=== PATIENT | male | born 1980 | race Caucasian/White ===

== ENCOUNTER 2020-03-30 20:18 | Emergency (ER) | payer MEDICAID, SELFPAY ==
[2020-03-30 20:23] VITALS: BP 138/62; PULSE 109; RESP 14; TEMP 37.1; O2SAT 99; BMI 31.1
[2020-03-30 21:05] VITALS: BP 165/91; PULSE 112; RESP 25; O2SAT 100
--- NOTE | 2020-03-30 21:08 | W.ED.MALEGU ---
HPI - Male Genitourinary General: Chief complaint: Urogenital-Male Stated complaint: URINARY PROBLEMS Time Seen by Provider: 03/30/20 21:03 History of Present Illness: HPI Narrative: Patient is a 40-year-old male that comes to the ED with scrotal pain and white discharge from meatus of penis. Patient says symptoms have been going on for approximately a week and a half. He states that it hurts whenever he urinates. He says that his started developing the scrotal pain last 24 hours. he started taking an antibiotic that his friend gave him when symptoms first started. Patient says he has been sexually active and having unprotected sex with a girl he has been dating for the past several months. She denies any STD history. Patient says he does not have any past STDs. He also says he has a small sore right near the meatus of his penis. He says his symptoms did improve but when he was out of the antibiotic symptoms came back. Patient rates pain an 8 out of 10. Patient has not taken anything for pain today and says he does not want anything for pain while here in the ED. Associated symptoms: Reports dysuria; Deny hematuria, nausea or vomiting Review of Systems Const: Denies: fever(s), chills or fatigue Eyes: Denies: change in vision or eye discomfort ENMT: Denies: throat pain, odynophagia, nasal discharge or nasal congestion Card: Denies: chest pain, palpitations, edema, swelling of feet/ankles, dyspnea on exertion or orthopnea Resp: Denies: dyspnea, productive cough or non-productive cough GI: Denies: abdominal pain, nausea, vomiting, diarrhea, constipation or hematochezia : Reports: dysuria, genital lesions, penile discharge (White discharge) and testicular pain (Scrotal pain); Denies: flank pain, difficulty urinating or hematuria Musc: Denies: neck pain, back pain or extremity swelling Skin/Breast: Denies: rash or new lesions Neuro: Denies: headache(s), numbness in extremities or weakness in extremities Physical Exam Const: COMMON NORMALS: no acute distress, patient oriented x3 and alert GENERAL APPEARANCE: cooperative and comfortable HENMT: COMMON NORMALS: normocephalic HEAD & SCALP: normocephalic MOUTH: Normal oral and palatal mucosa present THROAT: posterior oropharynx normal and uvula midline Eye: COMMON NORMALS: Equal, round and reactive pupils present PUPIL: Yes Equal, round and reactive pupils present Neck/C-Spine: COMMON NORMALS: supple GENERAL: Yes normal visual inspection Resp: COMMON NORMALS: normal respiratory effort, No retractions, No use of accessory muscles and clear to auscultation bilaterally AUSCULTATION: clear to auscultation bilaterally Cardio: COMMON NORMALS: regular rhythm, S1 normal heart sound present, S2 normal heart sound present, No gallops present (Cardio), No clicks present (Cardio), No murmurs present (Cardio) and Peripheral pulses 2+ throughout RATE: tachycardic RHYTHM: regular rhythm HEART SOUNDS: S1 normal heart sound present and S2 normal heart sound present PERIPHERAL PULSES: Peripheral pulses 2+ throughout GI: COMMON NORMALS: Normal to inspection, nondistended, normoactive bowel sounds present, Soft to palpation, non-tender and no masses PALPATION: Yes Soft to palpation : COMMON NORMALS: Yes no CVA tenderness BLADDER/KIDNEY EXAM: Yes no CVA tenderness PENIS: circumcised and Genital lesions present Details: Yes Urethral macule(s) present (Around the meatus.) and Yes Penile tenderness (Around the meatus) MEATUS: meatal discharge (White discharge) SCROTUM: Yes Scrotal tenderness present Back/Pelvis: COMMON NORMALS: no CVA tenderness Extremity: COMMON NORMALS: normal to inspection and no pedal edema Neuro: COMMON NORMALS: patient oriented x3 and moves all extremities SENSORIUM/ORIENTATION: Yes alert Skin: GENERAL SKIN EXAM: dry skin Course Vital Signs: Vital signs: Vital Signs Temperature 98.7 F 03/30/20 20:23 Pulse Rate 97 03/30/20 23:03 Respiratory Rate 18 03/30/20 23:03 Blood Pressure 118/64 03/30/20 23:03 Pulse Oximetry 97 03/30/20 23:03 MDM - Male MDM Narrative: Medical decision making narrative: Patient is a 40-year-old male who comes to the ED with scrotal pain and penile discharge. He has been sexually active with a woman for the past 3 months has had unprotected sex. Patient says girlfriend denies STDs and patient denies any past STDs. Gonorrhea and Chlamydia lab pending. Patient was given a shot of Rocephin and azithromycin as preemptive treatment. CBC was unremarkable. Syphilis was negative and ultrasound of the scrotum of show signs of epididymitis bilaterally. Patient was diagnosed with epididymitis and sent with a prescription for doxycycline. Referral to urologist was placed with case management. Return to ED precautions given. Patient was told keycase assembler will be contacting over the next several days set up appoint with urologist. Patient understood and agreed with plan Lab Data: Attestation: I reviewed the patient's lab results. Labs: Lab Results 03/30/20 03/30/20 03/30/20 Range/Units 21:00 21:16 21:16 WBC 5.7 (4.0-10.0) 10^3/ uL RBC 4.70 (4.1-5.3) 10^6/u L Hgb 14.2 (11.7-16.6) g/dL Hct 43.8 (42.0-52.0) % MCV 93.2 (80-94) fL MCH 30.2 (28.0-34.0) pg MCHC 32.4 (30.0-36.0) g/dL RDW 12.8 (12.1-15.1) % Plt Count 271 (130-400) 10^3/c mm MPV 9.3 (7.4-10.4) fL Neut % (Auto) 66.7 % Lymph % (Auto) 21.9 % [place] % (Auto) 9.3 % Eos % (Auto) 1.4 % Baso % (Auto) 0.5 % Neut # (Auto) 3.81 (1.8-7.7) 10^3/u L Lymph # (Auto) 1.3 (0.8-4.8) 10^3/u L [place] # (Auto) 0.5 (0.2-0.9) 10^3/u L Eos # (Auto) 0.1 (0.0-0.8) 10^3/u L Baso # (Auto) 0.0 (0.0-0.1) 10^3/u L Nucleated RBC % (a uto) 0 % Nucleated RBCs # 0.0 /100WBC Urine Color Yellow (Yellow) Urine Appearance Clear (CLEAR) Urine pH 5 (5-7) Ur Specific Gravit y 1.020 (1.005-1.030) Urine Protein Neg (Negative) Urine Glucose (UA) Norm (Normal) Urine Ketones Negative (Negative) Urine Blood Neg (Negative) Urine Nitrate Negative (Negative) Urine Bilirubin 1+ H (Negative) Urine Urobilinogen 4 H (Negative) mg/dL Ur Leukocyte Lauren ase Trace H (Negative) Urine RBC 0-4 H (0-2) /hpf Urine WBC 15-25 H (0-5) /hpf Ur Squamous Epith Cells 0-4 H (0-5) /hpf Amorphous Sediment Not Reportable Urine Bacteria 1+ H (NONE) /hpf Urine Mucus 3+ /hpf Urine Yeast Trace /hpf RPR Nonreactive (Nonreactive) Imaging Data: US: Attestation: I personally reviewed and interpreted this imaging study as follows: Radiologist's impression: [employer] [address] Ultrasound Report Signed Patient: Joe Gonzales Unit #: [id number] : [id number] Age/Sex: 40 / M ADM Date: 03/30/20 Loc: ER Room/Bed: Attending Dr: Ordering Provider/Ordering MD: Mychal James Date of Service: 03/30/20 Procedure(s): US scrotum 156[address] Accession Number(s): [id number] Report Number: [id number] PROCEDURE INFORMATION: Exam: US Scrotum Exam date and time: 03/30/2020 9:57 PM Age: 40 years old Clinical indication: Scrotum pain; Additional info: Scrotal pain TECHNIQUE: Imaging protocol: Real-time ultrasound of the scrotum and contents with color Doppler and image documentation. COMPARISON: No relevant prior studies available. FINDINGS: The testicles are within normal limits and relatively symmetrical in size. The right testicle measures 41 x 28 x 28 mm, estimated volume 17.0 cc. The left testicle measures 42 x 27 x 31 mm, estimated volume 18.4 cc. Right: No visible intratesticular mass. Duplex Doppler evaluation, with color flow and spectral waveform analysis, demonstrates intratesticular arterial and venous blood flow. Possible mild increased flow in the tail of the right epididymis, which may be slightly enlarged. Most of the epididymis appears unremarkable. Findings could represent mild epididymitis, although findings are somewhat equivocal at this time. Please correlate clinically. There is a very small amount of right scrotal fluid. Left: No visible intratesticular mass. Duplex Doppler evaluation, with color flow and spectral waveform analysis, demonstrates intratesticular arterial and venous blood flow. Possible mild increased flow in the tail of the left epididymis, which may be slightly enlarged. Most of the epididymis appears unremarkable. Findings could represent mild epididymitis, although findings are somewhat equivocal at this time. Please correlate clinically. There is no significant left scrotal fluid. / scrotum [id number] IMPRESSION: 1. Possible mild increased flow in the tail of the epididymis bilaterally, see above. Findings could represent mild epididymitis, although findings are somewhat equivocal at this time. Please correlate clinically. 2. No evidence for torsion by Doppler ultrasound. 3. Very small amount of right scrotal fluid. 4. Other details discussed above. Dictated By: Conrad Higuera MD Signed By: Conrad Higuera MD Signed Date/Time: 03/30/202244 DD/ 43 Discharge Plan Discharge Patient Disposition: Home Clinical Impression: Epididymitis Condition: Stable Prescriptions: New doxycycline hyclate 100 mg tablet 100 mg PO BID 10 Days Qty: 20 RF: 0 Discharge Orders: Discharge Order (Routine); Ordered 03/30/20 Ordered By: Mychal James Discharge Diet: Regular Discharge Activity: Increase activity as tolerated Patient Instructions: Epididymitis (ED) Activity Restrictions/Additional Instructions: Follow-up with medical provider as directed. Case management should be contacting you in the next several days to set up an appointment with Dr. Carlos the urologist for further evaluation. Take medications as prescribed. Return to the ER or your medical provider if condition worsens. Please read and understand discharge instructions. If any questions, please ask. Coding Level of Care Code ED Coagulating Drying Supervisor for Chg Fwd Exam Comprehensive
[2020-03-30 21:22] LABS: Basophils % 0.5 %; Eosinophils # 0.1 10^3/uL (0.0-0.8); Eosinophils % 1.4 %; Hematocrit 43.8 % (42.0-52.0); Hemoglobin 14.2 g/dL (11.7-16.6); Lymphocytes # 1.3 10^3/uL (0.8-4.8); Lymphocytes % 21.9 %; Mean Corpuscular HGB Conc 32.4 g/dL (30.0-36.0); Mean Corpuscular Hemoglobin 30.2 pg (28.0-34.0); Mean Corpuscular Volume 93.2 fL (80-94); Mean Platelet Volume 9.3 fL (7.4-10.4); Monocytes # 0.5 10^3/uL (0.2-0.9); Monocytes % 9.3 %; Neutrophils # 3.81 10^3/uL (1.8-7.7); Neutrophils % 66.7 %; Nucleated Red Blood Cells % 0 %; Platelet Count 271 10^3/cmm (130-400); Red Cell Distribution Width 12.8 % (12.1-15.1); White Blood Count 5.7 10^3/uL (4.0-10.0)
[2020-03-30 21:43] VITALS: BP 128/69; PULSE 92; RESP 18; O2SAT 99
[2020-03-30] MEDS: azithromycin 250 mg Tablet 1000 MG PO (21:43)
[2020-03-30 21:51] LABS: Bilirubin Urine 1+ (Negative); Blood Urine Neg (Negative); Glucose Urine UA Norm (Normal); Ketones Urine Negative (Negative); Leukocyte Esterase Urine Trace (Negative); Nitrate Urine Negative (Negative); Protein Urine Neg (Negative); Urine Appearance Clear (CLEAR); Urine Color Yellow (Yellow); Urobilinogen Urine 4 mg/dL (Negative); pH Urine 5 (5-7)
[2020-03-30 21:52] LABS: Add Urine Culture? Yes; Bacteria Urine 1+ /hpf; Mucus Urine 3+ /hpf; RBC Urine 0-4 /hpf (0-2); Squamous Epithelial Cell Urine 0-4 /hpf (0-5); WBC Urine 15-25 /hpf (0-5)
[2020-03-30 22:06] LABS: Rapid Plasma Reagin Syphilis Nonreactive (Nonreactive)
[2020-03-30 23:03] VITALS: BP 118/64; PULSE 97; RESP 18; O2SAT 97
--- NOTE | 2020-03-31 12:07 | DCPLANNER ---
banking manager had message to schedule a follow up appointment for patient with Dr. Carlos. banking manager called the office if Dr. Carlos, spoke with Елена, gave clinic patients information. banking manager was told that patients information would be printed and reviewed. Clinic will call patient with appointment information.
--- NOTE | 2020-04-02 09:38 | DCPLANNER ---
Addendum entered by Marysol Donato 05/02/20 12:54: this appointment was cancelled Original Note: Patient has a follow up appointment scheduled for April at 8:[address] Carlos. Clinic will call patient with appointment information.
== END 2020-03-30 23:05 | disposition home or self-care (01) ==
PROVIDERS: Emergency Provider Physician Assistant
DX: N45.1 Epididymitis (principal)
CPT/HCPCS: 12345; 76870; 81001; 85025; 86592; 87086; 87491; 87591; 96372; 99281; 99283; J0696; Q0144

== ENCOUNTER 2020-11-28 13:45 | Emergency (ER) | payer MEDICAID, SELFPAY ==
[2020-11-28 13:58] VITALS: BP 125/79; PULSE 106; RESP 17; TEMP 37.3; O2SAT 98; BMI 29.8
== END 2020-11-28 17:10 | disposition left against medical advice (07) ==
PROVIDERS: Emergency Provider Family Medicine
DX: R10.9 Unspecified abdominal pain (principal); Z53.21 Procedure and treatment not carried out due to patient leaving prior to being seen by health care provider
CPT/HCPCS: 36415; 87635

== ENCOUNTER 2021-05-14 15:36 | Emergency (ER) | payer MEDICAID, SELFPAY ==
[2021-05-14 15:44] VITALS: BP 146/58; PULSE 109; RESP 16; TEMP 37.4; O2SAT 99; BMI 29.8
--- NOTE | 2021-05-14 17:11 | W.ED.SKABFB ---
HPI - Skin/Abscess/Foreign Bdy General: Chief complaint: Skin/Abscess/Foreign Body Stated complaint: SPIDER BITE LEFT ARM Time Seen by Provider: 05/14/21 15:51 History of Present Illness: HPI narrative: Pt comes in c/o redness, swelling, and pain in the left upper arm. States that it started 4-5 days ago. States that it got significantly more red and swollen over the last day or 2 and is developed a blackened center. Complains of low-grade fever, no vomiting. Associated symptoms: Deny fever(s), nausea or vomiting Review of Systems Const: Denies: fever(s) or body aches Eyes: Denies: change in vision or blurry vision ENMT: Denies: throat pain or odynophagia Card: Denies: chest pain or palpitations Resp: Denies: dyspnea or productive cough GI: Denies: abdominal pain, nausea or vomiting : Denies: flank pain or dysuria Musc: Denies: neck pain or back pain Skin/Breast: Reports: erythema, skin pain, skin tenderness and new lesions; Denies: rash or pruritus Neuro: Denies: headache(s) or numbness in extremities Psych: Denies: anxiety or change in appetite Endo: Denies: polyuria or excessive sweating PFSH ED PFSH: Social History (Updated 12/11/20 @ 13:18 by Kristy Márquez NP) Smoking and tobacco status: current every day smoker cigarettes Physical Exam Const: COMMON NORMALS: no acute distress, patient oriented x3, healthy appearing and alert HENMT: COMMON NORMALS: normocephalic and atraumatic HEAD & SCALP: normocephalic and atraumatic Eye: COMMON NORMALS: Equal, round and reactive pupils present and EOMs intact bilaterally PUPIL: Yes Equal, round and reactive pupils present Neck/C-Spine: COMMON NORMALS: full ROM and supple Resp: COMMON NORMALS: normal respiratory effort, No retractions and No use of accessory muscles Cardio: COMMON NORMALS: regular rate and regular rhythm RATE: regular rate RHYTHM: regular rhythm GI: COMMON NORMALS: Normal to inspection, nondistended, normoactive bowel sounds present, Soft to palpation and non-tender PALPATION: Yes Soft to palpation Back/Pelvis: COMMON NORMALS: thoracic and lumbar spine normal to inspection and no thoracic nor lumbar tenderness Extremity: COMMON NORMALS: full ROM LEFT UPPER EXTREMITY: Yes upper arm (2 x 4 cm induration on his left upper arm with central fluctuance, signific) Neuro: COMMON NORMALS: patient oriented x3 SENSORIUM/ORIENTATION: Yes alert Psych: COMMON NORMALS: mental status grossly normal and cooperative Skin: COMMON NORMALS: no rashes or lesions noted and no wounds GENERAL SKIN EXAM: no rashes or lesions noted Procedures Abscess I/D Site: upper extremity Side (if applicable): left Local Anesthetic: lidocaine 1% Amount of anesthesia used (mL): 3 Technique: incised with #11 blade Amount of fluid expressed (mL): 10 Irrigation: Yes Packing used?: plain Course Vital Signs: Vital signs: Vital Signs Temperature 99.4 F 05/14/21 15:44 Pulse Rate 109 H 05/14/21 15:44 Respiratory Rate 16 05/14/21 15:44 Blood Pressure 146/58 05/14/21 15:44 Pulse Oximetry 99 05/14/21 15:44 MDM - Skin/Abscess/Foreign Bdy MDM Narrative: Medical decision making narrative: Pt comes in c/o redness, swelling, and pain in the left upper arm. States that it started 4-5 days ago. States that it got significantly more red and swollen over the last day or 2 and is developed a blackened center. Complains of low-grade fever, no vomiting. On physical exam he has a indurated region on the left upper arm that is hot, swollen, tender to palpation, erythematous With erythema tracking up and down the arm. using an 11 blade scalpel after anesthetizing the skin with a 27-gauge needle and 1% lidocaine I made a simple linear incision, then probed with the abscess to break up loculations and expressed a significant amount of purulent fluid. We will place the patient on antibiotics, pain medication, and discharged with precautions to return for worsening or changing symptoms. Discharge Plan Discharge Patient Disposition: Home Clinical Impression: Cellulitis Qualifiers: Site of cellulitis: extremity Site of cellulitis of extremity: upper extremity Laterality: left Qualified Code(s): L03.114 - Cellulitis of left upper limb Abscess of skin or subcutaneous tissue Qualifiers: Site of cutaneous abscess: extremity Site of cutaneous abscess of extremity: upper extremity Laterality: left Qualified Code(s): L02.414 - Cutaneous abscess of left upper limb Condition: Stable Prescriptions: New Bactrim DS 800-160 mg tablet 1 tab PO BID 10 Days Qty: 20 RF: 0 Keflex 750 mg capsule 750 mg PO BID 10 Days Qty: 20 RF: 0 hydrocodone-acetaminophen 5-325 mg tablet 1 tab PO Q6H Qty: 14 RF: 0 Discharge Orders: Discharge ED (Routine); Ordered 05/14/21 Ordered By: Jim Wasserman Coding Level of Care Code ED Fish Farm Manager for Hugh James
[2021-05-14] MEDS: cephALEXin 500 mg Capsule PO (17:14)
[2021-05-14] MEDS: sulfamethoxazole-trimeth DS 160-800 mg Tablet 2 TAB PO (17:14)
[2021-05-14] MEDS: lidocaine 1% INJ 20 mL INJECTION (17:14)
[2021-05-14] MEDS: HYDROcodone-acetaminophen 5-325 mg Tablet 1 TAB PO (17:14)
[2021-05-14 17:26] VITALS: PULSE 97; RESP 16; O2SAT 98
== END 2021-05-14 17:27 | disposition home or self-care (01) ==
PROVIDERS: Emergency Provider Emergency Medicine
DX: L03.114 Cellulitis of left upper limb (principal); L02.414 Cutaneous abscess of left upper limb; F17.210 Nicotine dependence, cigarettes, uncomplicated
CPT/HCPCS: 10060; 99283

== ENCOUNTER 2021-10-15 11:20 | Emergency (ER) | payer MEDICAID, SELFPAY ==
[2021-10-15 11:37] VITALS: BP 128/72; PULSE 90; RESP 12; TEMP 36.9; O2SAT 99; BMI 32.5
--- NOTE | 2021-10-15 11:55 | W.ED.SKABFB ---
HPI - Skin/Abscess/Foreign Bdy General: Chief complaint: Skin/Abscess/Foreign Body Stated complaint: itchy red bumps covering body Time Seen by Provider: 10/15/21 11:41 History of Present Illness: Patient is a 41-year-old male comes to the ED with pruritic rash. Rash started yesterday and is on his upper and lower extremities bilaterally. Patient says he was doing a lot of weed eating and working in some tall weeds and grass right before rash started. Rash is a bunch of tiny red dots that itch. Denies any throat tightening, shortness of breath, lip/tongue swelling, nausea or vomiting. Associated symptoms: Deny chills, fever(s), nausea or vomiting Review of Systems Const: Denies: fever(s), chills or fatigue Eyes: Denies: change in vision or eye discomfort ENMT: Denies: throat pain, odynophagia, nasal discharge or nasal congestion Card: Denies: chest pain, palpitations, edema, swelling of feet/ankles, dyspnea on exertion or orthopnea Resp: Denies: dyspnea, productive cough or non-productive cough GI: Denies: abdominal pain, nausea, vomiting, diarrhea, constipation or hematochezia : Denies: flank pain, difficulty urinating, dysuria or hematuria Musc: Denies: neck pain, back pain or extremity swelling Skin/Breast: Reports: rash and pruritus; Denies: new lesions Neuro: Denies: headache(s), numbness in extremities or weakness in extremities PFS ED PFSH: Medical History No pertinent family history Surgical History No pertinent past surgical history Social History Smoking and tobacco status: current every day smoker cigarettes Physical Exam Const: COMMON NORMALS: no acute distress, patient oriented x3 and alert GENERAL APPEARANCE: cooperative and comfortable HENMT: COMMON NORMALS: normocephalic HEAD & SCALP: normocephalic MOUTH: Normal oral and palatal mucosa present THROAT: posterior oropharynx normal and uvula midline Neck/C-Spine: COMMON NORMALS: supple GENERAL: Yes normal visual inspection Resp: COMMON NORMALS: normal respiratory effort, No retractions, No use of accessory muscles and clear to auscultation bilaterally AUSCULTATION: clear to auscultation bilaterally Cardio: COMMON NORMALS: regular rate, regular rhythm, S1 normal heart sound present, S2 normal heart sound present, No gallops present (Cardio), No clicks present (Cardio), No murmurs present (Cardio) and Peripheral pulses 2+ throughout RATE: regular rate RHYTHM: regular rhythm HEART SOUNDS: S1 normal heart sound present and S2 normal heart sound present PERIPHERAL PULSES: Peripheral pulses 2+ throughout GI: COMMON NORMALS: Normal to inspection, nondistended, normoactive bowel sounds present, Soft to palpation, non-tender and no masses PALPATION: Yes Soft to palpation : COMMON NORMALS: Yes no CVA tenderness BLADDER/KIDNEY EXAM: Yes no CVA tenderness Back/Pelvis: COMMON NORMALS: no CVA tenderness Neuro: COMMON NORMALS: patient oriented x3 and moves all extremities SENSORIUM/ORIENTATION: Yes alert Skin: NARRATIVE SKIN EXAM: Multiple small, round, erythemic maculopapular rash on upper and lower extremities bilaterally. Findings suggestive of a contact dermatitis likely caused by plant. Course Vital Signs: Vital signs: Vital Signs Temperature 98.4 F 10/15/21 11:37 Pulse Rate 90 10/15/21 11:37 Respiratory Rate 12 10/15/21 11:37 Blood Pressure 128/72 10/15/21 11:37 Pulse Oximetry 99 10/15/21 11:37 MDM - Skin/Abscess/Foreign Bdy Medicial Decision Making Patient is a 41-year-old male comes to the ED with a pruritic rash on upper and lower extremities bilaterally. Patient was weed eating and in some tall weeds and grass yesterday and rash started right after that. Denies any shortness of breath, throat tightness, tongue/lip swelling or nausea/vomiting. Findings suggestive of a contact dermatitis likely caused by plant. Patient was given a dose of IM Kenalog here in the ED and discharged home with a prescription for prednisone as well. Follow-up with PCP in the next week for reevaluation. Return to ED precautions given. Patient is to agree with plan. Discharge Plan Discharge Patient Disposition: Home Clinical Impression: Dermatitis due to plant Condition: Stable Prescriptions: New prednisone 20 mg tablet 20 mg PO BID 5 Days Qty: 10 0RF No Action hydrocodone-acetaminophen 5-325 mg tablet 1 tab PO Q6H Qty: 14 0RF Discharge Orders: Discharge ED (Routine); Ordered 10/15/21 Ordered By: Mychal James Discharge Diet: Regular Discharge Activity: Resume usual activity Patient Instructions: Contact Dermatitis (DC) Activity Restrictions/Additional Instructions: Follow-up with medical provider as directed in the next 7 to 10 days reevaluation. Take medications as prescribed. Wait 4 to 5 days to see if rash is improving before starting prescribed steroid. If rashes not getting better I would then start taking steroid prescription. Return To the ER or your medical provider if condition worsens. Please read and understand discharge instructions. Thank you for choosing [facility] for your healthcare needs today. Please realize this is an emergency room and that we are providing you with a medical screening exam and this may not be complete and all inclusive of all the testing and or work up that you may need to determine your ailment or severity of your illness. It is very important that you follow up as instructed or that you return to the Emergency Department should you have concerns or if your condition changes or worsens in any way. Coding Level of Care Code ED Director Of Physical Security for Hugh James Exam Comprehensive
[2021-10-15] MEDS: triamcinolone 40 mg/mL SDV IM (12:11)
== END 2021-10-15 12:26 | disposition home or self-care (01) ==
PROVIDERS: Emergency Provider Physician Assistant
DX: L25.5 Unspecified contact dermatitis due to plants, except food (principal)
CPT/HCPCS: 96372; 99283; J3301

== ENCOUNTER 2021-10-30 10:34 | Emergency (ER) | payer MEDICAID, SELFPAY ==
[2021-10-30 10:59] VITALS: BP 152/89; PULSE 91; RESP 15; TEMP 36.8; O2SAT 99; BMI 32.1
--- NOTE | 2021-10-30 11:19 | W.ED.SKABFB ---
HPI - Skin/Abscess/Foreign Bdy General: Chief complaint: Skin/Abscess/Foreign Body Stated complaint: Rash on arms Time Seen by Provider: 10/30/21 11:06 Source: patient Mode of arrival: ambulatory Limitations: no limitations History of Present Illness: Patient is a 41-year-old male who presents to ED today with a complaint of a rash for the past 2 weeks or so. Patient was initially seen in our facility at the time had a history of recently pulling weeds. Provider stated the rash looked consistent with a plant dermatitis patient states he was therefore treated with IM Kenalog and oral Prednisone. Patient states since that visit rash has not seemed to improve and has worsened/spread. He is complaining of pain and pruritus. He states he feels like his right arm is swollen when compared to the left. He states rash at this time is mainly on his bilateral upper and lower extremities. MD complaint: rash Onset (ago): week(s) Tetanus up to date: yes Location: generalized Severity: moderate Quality: pruritic Relieving factors: none Exacerbating factors: none Associated symptoms: Deny chills or fever(s) Treatments prior to arrival: corticosteroid Review of Systems Const: Denies: fever(s), chills, body aches, fatigue or malaise Card: Denies: chest pain Resp: Denies: dyspnea GI: Denies: abdominal pain Musc: Reports: extremity pain and extremity swelling; Denies: neck pain, back pain, joint pain or joint swelling Skin/Breast: Reports: rash and pruritus Neuro: Denies: headache(s), numbness in extremities, weakness in extremities or sensory changes [facility] ED PFSH: Medical History No pertinent family history Surgical History No pertinent past surgical history Social History Smoking and tobacco status: current every day smoker cigarettes Physical Exam Const: COMMON NORMALS: no acute distress, patient oriented x3, no limitations, alert and well nourished GENERAL APPEARANCE: cooperative Resp: COMMON NORMALS: normal respiratory effort and clear to auscultation bilaterally AUSCULTATION: clear to auscultation bilaterally Cardio: COMMON NORMALS: regular rate and regular rhythm RATE: regular rate RHYTHM: regular rhythm Extremity: GENERAL: Yes normal exam except as noted RIGHT UPPER EXTREMITY: Yes lower arm OTHER: pt does have non-specific swelling to R forearm when compared to L; small area of most likely superficial phelbitis palpated; no cellulitis present Neuro: COMMON NORMALS: patient oriented x3, moves all extremities, no focal motor deficits, no sensory deficits noted and gait normal SENSORIUM/ORIENTATION: Yes alert Skin: NARRATIVE SKIN EXAM: pt has countless very small erythematous papules to bilateral UE/LEs in various stages-some are small vesicular folliculitis appearing lesions, others have scabs from where patient has admittedly picked at them, while others are healed/scarred RASHES: rashes noted Course Vital Signs: Vital signs: Vital Signs Temperature 98.2 F 10/30/21 10:59 Pulse Rate 91 10/30/21 10:59 Respiratory Rate 15 10/30/21 10:59 Blood Pressure 152/89 10/30/21 10:59 Pulse Oximetry 99 10/30/21 10:59 MDM - Skin/Abscess/Foreign Bdy Medicial Decision Making At this time rash clinically appears like a staph folliculitis. It certainly could have started as a plant dermatitis and secondarily got infected. We will place him on oral Keflex. Also recommend topical benzoyl peroxide and/or chlorhexidine body washes twice daily. Given follow-up with primary care in 1 week if rash does not seem to be improved. Discharge Plan Discharge Patient Disposition: Home Clinical Impression: Staphylococcus aureus superficial folliculitis Condition: Stable Prescriptions: New cephalexin 500 mg capsule 500 mg PO Q6H 7 Days Qty: 28 0RF No Action hydrocodone-acetaminophen 5-325 mg tablet 1 tab PO Q6H Qty: 14 0RF Discharge Orders: Discharge ED (Routine); Ordered 10/30/21 Ordered By: Julia Felix Coding Level of Care Code ED Second Crusher for [facility]
--- NOTE | 2021-10-30 11:29 | USCV_ITS ---
Christian Joe Age: 41 Gender: M : 1980 Exam Date: 10/30/2021 11:55 Ordering Phys: Julia Felix Technologist: Jenniffer Baez [place] [facility] [place]: pain and swelling rt arm HISTORY: Pain and swelling rt arm PROCEDURES: Venous duplex imaging was performed in only the right upper extremity. The following venous structures were evaluated: internal jugular vein, subclavian vein, axillary vein, and brachial veins. In addition, the basilic vein, cephalic vein, radial vein, and ulnar vein. FINDINGS: Normal 2-D, color Doppler and phasicity noted in ther right upper extremity venous system extending from the right internal jugular vein through the main forearm. No thrombosis or occlusion noted. CONCLUSIONS No right upper extremity DVT. Dr. Tamika Jeter DO (Electronically Signed) Final Date: 30 October 2021 13:06 S
== END 2021-10-30 12:58 | disposition home or self-care (01) ==
PROVIDERS: Emergency Provider Physician Assistant
DX: L73.8 Other specified follicular disorders (principal); A49.01 Methicillin susceptible Staphylococcus aureus infection, unspecified site; F17.210 Nicotine dependence, cigarettes, uncomplicated
CPT/HCPCS: 93971; 99283

== ENCOUNTER 2022-04-06 08:29 | Emergency (ER) | payer MEDICAID, SELFPAY ==
[2022-04-06 08:32] VITALS: BP 124/77; PULSE 78; RESP 18; TEMP 36.7; O2SAT 98
--- NOTE | 2022-04-06 09:27 | ED_ITS ---
HPI - Back Pain/Injury General: Chief Complaint: Back Pain/Injury Stated Complaint: back pain Time Seen by Provider: 04/06/22 08:57 Source: patient Mode of arrival: ambulatory History of Present Illness: 42-year-old male presents emergency room planing of back pain for the last 2 weeks. He denies any pain radiating down the legs. It is focused mostly at the level of the belt line to the right of the midline. He has no urinary Inc. retention or fecal incontinence. He cannot recall any precipitating event. No previous back surgery he has had plain films of his back before and was told he had narrowed disc space but otherwise no further work-up is been done in the past. MD elicited complaint: back pain Pertinent past history: prior back pain Onset (ago): week(s) (2) Timing: constant Quality: spasming Location: lumbar spine Radiation: none Exacerbating factors: movement, walking and lifting Relieving factors: supine and sitting upright Associated symptoms: Deny abdominal pain, arthralgias, chills, change in bowel habits, difficulty walking, dysuria, fatigue, fecal incontinence, fever(s), hematuria, myalgias, nausea, numbness, syncope, tingling/numbness/burning, urinary frequency, urinary urgency, vomiting or weakness Review of Systems Const: Denies: fever(s), chills, fatigue or malaise ENMT: Denies: throat pain, ear or mastoid pain, nasal discharge or nasal congestion Card: Denies: chest pain, palpitations, irregular heart rhythm or syncope Resp: Denies: dyspnea, productive cough or non-productive cough GI: Denies: abdominal pain, nausea, vomiting, fecal incontinence or change in bowel habits : Denies: dysuria, urinary frequency, urinary urgency or hematuria Skin/Breast: Denies: rash or pruritus Neuro: Denies: difficulty walking PFSH ED PFSH: Medical History No pertinent family history Surgical History No pertinent past surgical history Social History Smoking and tobacco status: current every day smoker cigarettes Physical Exam Const: COMMON NORMALS: no acute distress GENERAL APPEARANCE: cooperative and comfortable ORIENTATION/CONSCIOUSNESS: Yes awake, Yes oriented to person, Yes oriented to place and Yes oriented to time HENMT: COMMON NORMALS: normocephalic, atraumatic and hearing grossly normal bilaterally HEAD & SCALP: normocephalic and atraumatic Resp: COMMON NORMALS: normal respiratory effort, No retractions, No use of accessory muscles and clear to auscultation bilaterally AUSCULTATION: clear to auscultation bilaterally Cardio: COMMON NORMALS: regular rate, regular rhythm and No murmurs present (Cardio) RATE: regular rate RHYTHM: regular rhythm GI: COMMON NORMALS: Soft to palpation and No hepatosplenomegaly present AUSCULTATION: Yes normoactive bowel sounds PALPATION: Yes Soft to palpation, No Tenderness to palpation present (GI), No Guarding due to palpation present (GI) and Yes No hepatosplenomegaly present Extremity: COMMON NORMALS: normal to inspection, capillary refill normal, no clubbing, cyanosis or edema, no calf tenderness and no pedal edema Neuro: SENSORIUM/ORIENTATION: Yes oriented to person, Yes oriented to place and Yes oriented to time SENSORY EXAM: Yes extremities (Normal, no loss of sensation in lower extremities) MOTOR EXAM: 5/5 motor strength present throughout DEEP TENDON REFLEXES: Right patellar reflex intensity grade: 2+ and Left patellar reflex intensity grade: 2+ OTHER: Straight leg raising is negative Skin: COMMON NORMALS: no rashes or lesions noted GENERAL SKIN EXAM: no rashes or lesions noted Course Vital Signs: Vital signs: Vital Signs Temperature 98.1 F 04/06/22 08:32 Pulse Rate 78 04/06/22 08:32 Respiratory Rate 18 04/06/22 08:32 Blood Pressure 124/77 04/06/22 08:32 Pulse Oximetry 98 04/06/22 08:32 MDM - Back Pain/Injury Medical Decision Making No sign of significant neurologic impingement at this time appears to be more musculoskeletal patient is given steroids anti-inflammatories and muscle relaxer in the emergency room discharged home. Case management to refer to orthopedic spine surgery per patient request. Medical Records I reviewed the patient's medical records. Labs I reviewed the patient's lab results. Discharge Plan Discharge Patient Disposition: Home Clinical Impression: Strain of lumbar region Condition: Stable Prescriptions: New prednisone 20 mg tablet 20 mg PO TID Qty: 15 0RF Rx Instructions: 1 p.o. 3 times daily x3 days, 1 p.o. twice daily x2 days, 1 p.o. daily x2 days diclofenac sodium 75 mg tablet,delayed release (DR/EC) 75 mg PO Q12H PRN (Reason: pain) Qty: 20 0RF tizanidine 4 mg tablet 4 mg PO Q6H PRN (Reason: muscle spasticity) Qty: 20 0RF Rx Instructions: do not exceed 3 doses per 24 hrs No Action hydrocodone-acetaminophen 5-325 mg tablet 1 tab PO Q6H Qty: 14 0RF Discharge Orders: Discharge ED (Routine); Ordered 04/06/22 Ordered By: Benoit Villavicencio Discharge Diet: Usual diet Discharge Activity: Resume usual activity Patient Instructions: Acute Low Back Pain (ED), Opioid Safety, Pain Management Activity Restrictions/Additional Instructions: You were seen for back pain. You are given steroids anti-inflammatories and muscle relaxers in the emergency room and prescription for same to go home with. cargo and ramp services manager will make arrangements for you to follow-up with orthopedic spine surgery and the Ortho clinic. Avoid any heavy lifting bending or twisting do not work above shoulders or below the waistline for the next 10 to 14 days. Avoid lifting anything more than 10 or 15 pounds. Coding Level of Care Code ED Business Consultant for [facility]
[2022-04-06] MEDS: orphenadrine 30 mg/mL Inj 2 mL 60 MG IM (09:29)
[2022-04-06] MEDS: ketorolac 60 mg/2 mL INJ IM (09:30)
[2022-04-06] MEDS: dexamethasone 10 mg/mL INJ IM (09:30)
--- NOTE | 2022-04-06 10:39 | DCPLANNER ---
Addendum entered by Marysol Donato 04/08/22 12:24: Patient had a follow up appointment scheduled for 04.08.22 with ortho - patient did attend appointment. Original Note: manager drilling had message to schedule a follow up appointment for patient with ortho. manager drilling sent patients information to the front office staff at ortho. Patients information will be printed and reviewed. Clinic will call patient with appointment information.
== END 2022-04-06 09:50 | disposition home or self-care (01) ==
PROVIDERS: Emergency Provider Family Medicine
DX: S39.012A Strain of muscle, fascia and tendon of lower back, initial encounter (principal); X58.XXXA Exposure to other specified factors, initial encounter
CPT/HCPCS: 96372; 99284; J1100; J1885; J2360

== ENCOUNTER → 2022-04-08 10:34 | Outpatient (BNVA) | payer MEDICAID, SELFPAY | PROVIDERS: Referring Provider Family Medicine; Visit Provider Physician Assistant | DX: S39.012A Strain of muscle, fascia and tendon of lower back, initial encounter (principal) | CPT/HCPCS: 72110 ==

== ENCOUNTER 2022-08-03 09:07 | Outpatient (CLI) | payer MEDICAID, SELFPAY ==
--- NOTE | 2022-08-03 09:49 | MR_ITS ---
WS: [id number] MRI LUMBAR SPINE NONCONTRAST TECHNIQUE: Sagittal T1, T2 and STIR imaging. Axial T1 and T2 imaging. CLINICAL INFORMATION: low back pain COMPARISON: None. FINDINGS: Some images degraded by patient motion. Mild lumbar curve. No acute compression. No high-grade central canal stenosis. Disc bulging worse at L4-L5 and L5-S1. L1-L2: Mild facet arthropathy. Spinal canal and foramen are patent. L2-L3: Mild facet arthropathy. Mild LEFT and no significant RIGHT foraminal narrowing. L3-L4: Mild annular bulging. Slight narrowing of the RIGHT subarticular recess. RIGHT foraminal protr usion impinges the exiting RIGHT L3 nerve root with moderate RIGHT foraminal narrowing. LEFT foramen is patent. Moderate facet arthropathy. L4-L5: Mild annular bulging. Impingement on the traversing LEFT L5 nerve root in the subarticular rec ess. Moderate facet arthropathy. Moderate LEFT foraminal narrowing. Mild RIGHT foraminal narrowing. S light impingement on the exiting LEFT L4 nerve root. L5-S1: Mild disc bulging with osteophytic ridging. Spinal canal and foramen are patent. Mild to moder ate facet arthropathy. Visualized pelvic bony structures: Normal. Paravertebral soft tissues: Normal. MR/MR lumbar spine wo con* [id number] IMPRESSION: 1. Mild lumbar curve. No acute compression. No high-grade central canal stenos is. 2. RIGHT foraminal protrusion L3-L4 with moderate RIGHT foraminal narrowing an d slight impingement on the exiting RIGHT L3 nerve root. Slight impingement tra versing RIGHT L4 nerve root subarticular recess at this level. 3. Annular bulging L4-L5 impinges the traversing LEFT L5 nerve root subarticu lar recess. Moderate LEFT L4-L5 foraminal narrowing impinges the exiting LEFT L 4 nerve root. 4. Mild RIGHT L4-L5 foraminal narrowing. 5. Mild to moderate facet arthropathy L4-L5 and L5-S1.
== END 2022-08-03 09:08 | disposition home or self-care (01) ==
LOC: RADSHAW 09:10
PROVIDERS: Visit Provider Physician Assistant
DX: M51.26 Other intervertebral disc displacement, lumbar region (principal); M48.061 Spinal stenosis, lumbar region without neurogenic claudication; M47.816 Spondylosis without myelopathy or radiculopathy, lumbar region; M47.817 Spondylosis without myelopathy or radiculopathy, lumbosacral region
CPT/HCPCS: 72148

== ENCOUNTER 2024-10-14 18:59 | Emergency (ER) | payer MEDICAID, SELFPAY ==
[2024-10-14 19:00] VITALS: BP 141/99; PULSE 88; RESP 16; TEMP 37.2; O2SAT 97; BMI 34.8
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
[2024-10-14 19:48] VITALS: BP 141/99; PULSE 83; RESP 18; O2SAT 100
[2024-10-14] MEDS: ondansetron 4 MG Tablet PO (19:50)
[2024-10-14] MEDS: HYDROmorphone 0.5 MG/0.5 ML INJ 1 MG IM (19:50)
[2024-10-14 20:11] VITALS: BP 144/98; PULSE 78; RESP 18; O2SAT 100
[2024-10-14 20:46] VITALS: BP 141/93; PULSE 73; RESP 18; O2SAT 99
== END 2024-10-14 20:47 | disposition home or self-care (01) ==
PROVIDERS: Emergency Provider Emergency Medicine
DX: S39.012A Strain of muscle, fascia and tendon of lower back, initial encounter (principal); S13.4XXA Sprain of ligaments of cervical spine, initial encounter; S06.0X0A Concussion without loss of consciousness, initial encounter; V89.2XXA Person injured in unspecified motor-vehicle accident, traffic, initial encounter; F17.210 Nicotine dependence, cigarettes, uncomplicated; R51.9 Headache, unspecified; M54.2 Cervicalgia
CPT/HCPCS: 70450; 72100; 72125; 73590; 96372; 99284; J1171; Q0162

== ENCOUNTER 2024-10-31 16:25 | Emergency (ER) | payer MEDICAID, SELFPAY ==
[2024-10-31 16:33] VITALS: BP 157/79; PULSE 93; RESP 18; TEMP 36.9; O2SAT 97; BMI 34.8
--- NOTE | 2024-10-31 16:43 | W.ED.ANIMALB ---
HPI - Animal Bite General: Chief Complaint: Animal Bite Stated Complaint: rt trigger finger dog bite Time Seen by Provider: 10/31/24 16:27 Source: patient Mode of arrival: ambulatory Limitations: no limitations History of Present Illness: 44-year-old male who states that he was trying to break up a fight between his dog and another dog just prior to arrival states the dog bit him on the index finger on his left hand. He has two 1 inch lacerations to his index finger dog is up-to-date on his vaccinations. Bleeding is controlled no other injuries noted Associated symptoms: Deny chills, fever(s) or headache(s) Related Data Previous Rx's ?Medication ?Instructions ?Recorded prednisone 20 mg tablet 20 mg PO TID #15 tabs 04/06/22 tizanidine 4 mg tablet 4 mg PO Q6H PRN muscle spasticity 04/06/22 #20 tabs tramadol 50 mg tablet 50 mg PO TID PRN pain 7 days #21 07/08/22 tabs diclofenac sodium 75 mg 75 mg PO Q12H PRN pain #20 tabs 10/14/24 tablet,delayed release hydrocodone 5 mg-acetaminophen 325 1 tab PO Q6H pain 5 days #7 tabs 10/14/24 mg tablet amoxicillin 500 mg-potassium 1 tab PO BID #14 tabs 10/31/24 clavulanate 125 mg tablet (Augmentin) Allergies Allergy/AdvReac Type Severity Reaction Status Date / Time aspirin Allergy Unknown Verified 10/14/24 19:09 Review of Systems Const: Denies: fever(s), chills, body aches or change in appetite ENMT: Denies: throat pain or dental pain Card: Denies: chest pain Resp: Denies: dyspnea GI: Denies: abdominal pain, nausea, vomiting or diarrhea Musc: Reports: extremity pain; Denies: neck pain or back pain Skin/Breast: Denies: rash Neuro: Denies: headache(s) PFSH ED PFSH: Medical History No pertinent family history Surgical History No pertinent past surgical history Social History Smoking and tobacco/nicotine status: current every day tobacco/nicotine user cigarettes Substance/Drug Use: current Substance/Drug use frequency: daily Physical Exam Const: COMMON NORMALS: no acute distress, patient oriented x3 and healthy appearing HENMT: COMMON NORMALS: normocephalic HEAD & SCALP: normocephalic Eye: COMMON NORMALS: conjunctivae normal CONJUNCTIVA: Yes conjunctivae normal Neck/C-Spine: COMMON NORMALS: full ROM and supple Chest: COMMONS NORMALS: normal inspection of the chest Resp: COMMON NORMALS: normal respiratory effort Cardio: COMMON NORMALS: regular rate RATE: regular rate Extremity: COMMON NORMALS: full ROM Neuro: COMMON NORMALS: patient oriented x3, moves all extremities and no focal motor deficits Psych: COMMON NORMALS: mental status grossly normal, Normal thought process present and cooperative THOUGHT PROCESS: Normal thought process present Skin: NARRATIVE SKIN EXAM: Two 1 inch lacerations of very distal tip of his left index finger no tendon involvement does not involve the nailbed. Procedures Laceration Laceration 1: Site: hand Side (If applicable): left Size (cm): 1 Description: linear Depth: simple, single layer Local Anesthetic: lidocaine 1% Amount of anesthesia used (mL): 4 Pre-repair: wound explored and irrigated extensively Skin layer closed with: nylon Size (cm): 5-0 Number of sutures: 1 Technique: simple, interrupted Laceration 2: Site: hand Side (If applicable): left Size (cm): 1.5 Description: linear Depth: simple, single layer Local Anesthetic: lidocaine 1% Amount of anesthesia used (mL): 5 Pre-repair: wound explored, irrigated extensively and deep structures intact Skin layer closed with: nylon Size (cm): 5-0 Number of sutures: 2 Technique: simple, interrupted Course Vital Signs: Vital signs: Vital Signs Temperature 98.5 F 10/31/24 16:33 Pulse Rate 93 10/31/24 16:33 Respiratory Rate 18 10/31/24 16:33 Blood Pressure 157/79 10/31/24 16:33 Pulse Oximetry 97 10/31/24 16:33 Oxygen Delivery Me thod Room Air 10/31/24 16:33 MDM - Animal Bite Medical Decision Making Patient presents here with laceration to tip of his finger due to dog bite wound was cleaned thoroughly did place 3 sutures he has no sutures noted [address] him on Augmentin he is return if any signs of infection. Medical Records I reviewed the patient's medical records. No radiology studies performed this visit Discharge Plan Discharge Patient Disposition: Home Clinical Impression: Dog bite Qualifiers: Encounter type: initial encounter Qualified Code(s): W54.0XXA - Bitten by dog, initial encounter Finger laceration Qualifiers: Encounter type: initial encounter Finger: index finger Damage to nail status: without damage Foreign body presence: without foreign body Laterality: left Qualified Code(s): S61.211A - Laceration without foreign body of left index finger without damage to nail, initial encounter Condition: Stable Prescriptions: New amoxicillin-pot clavulanate [Augmentin] 500-125 mg tablet 1 tab PO BID Qty: 14 0RF No Action tramadol 50 mg tablet 50 mg PO TID PRN (Reason: pain) 7 Days Qty: 21 0RF prednisone 20 mg tablet 20 mg PO TID Qty: 15 0RF Rx Instructions: 1 p.o. 3 times daily x3 days, 1 p.o. twice daily x2 days, 1 p.o. daily x2 days tizanidine 4 mg tablet 4 mg PO Q6H PRN (Reason: muscle spasticity) Qty: 20 0RF Rx Instructions: do not exceed 3 doses per 24 hrs hydrocodone-acetaminophen 5-325 mg tablet 1 tab PO Q6H 5 Days Qty: 7 0RF diclofenac sodium 75 mg tablet,delayed release (DR/EC) 75 mg PO Q12H PRN (Reason: pain) Qty: 20 0RF Discharge Orders: Discharge ED (Routine); Ordered 10/31/24 Ordered By: Bossman Farah Discharge Diet: Advance as tolerated Discharge Activity: Resume usual activity Patient Instructions: Animal Bite (ED), Care For Your Stitches (ED) Activity Restrictions/Additional Instructions: suture removal in 7 days Print Language: Faroese Coding Level of Care Code ED Plating Equipment Tender for Hugh James
[2024-10-31] MEDS: BUPivacaine 0.5% INJ 10 mL INJECTION (17:25)
== END 2024-10-31 17:35 | disposition home or self-care (01) ==
PROVIDERS: Emergency Provider Emergency Medicine
DX: S61.251A Open bite of left index finger without damage to nail, initial encounter (principal); W54.0XXA Bitten by dog, initial encounter
CPT/HCPCS: 12001; 99283; 99291; A6446; J3490; J9999